=== PATIENT | female | born 1950 | race Caucasian/White ===

== ENCOUNTER 2018-03-23 22:04 | Emergency (ER) | payer MEDICARE, MEDICAID ==
[~2018-03-23] VITALS: Ht 162.6 cm; Wt 72.0 kg
[2018-03-23 22:11] VITALS: Ht 162.6 cm; Wt 72.0 kg
--- NOTE | 2018-03-23 23:46 | ERD ---
ER Documentation Chief Complaint Chief Complaint SORE THROAT X 1 DAY HPI This is a 67-year-old female who presents to emergency department with complaints of throat pain for about 2 days. LMP: Denies headache, head injury, loss of consciousness, dizziness, neck pain, neck stiffness, throat pain, difficulty swallowing, difficulty breathing lying flat, shoulder pain, chest pain, back pain, abdominal pain, nausea, vomiting, constipation, diarrhea, urinary symptoms, or possibility being , loss of bowel and bladder control, trauma, injury, falls, difficulty walking due to pain, numbness or tingling sensation, calf pain, recent travel, recent major surgery in the last 3 weeks, calf pain, recent long travel, recent exposure to any illness, recent antibiotic use in the last 3 months, fever, chills, seizures. Past medical history: Surgical history: Social: Denies smoking, use of alcoholic beverages, use of illegal drugs. ROS All systems reviewed and are negative except as per history of present illness. Medications Home Meds Active Scripts Acetaminophen* (Tylophen*) 500 Mg Capsule, 1 CAP PO Q6H PRN for PAIN AND OR ELEVATED TEMP, #20 CAP Prov:PASILABANJACKLYNBRIAN F 03/24/18 Ondansetron Hcl* (Zofran*) 4 Mg Tablet, 4 MG PO Q8H PRN for NAUSEA AND/OR VOMITING, #30 TAB Prov:PASILABANROBERT F 03/24/18 Benzonatate* (Tessalon Perle*) 100 Mg Capsule, 100 MG PO Q8H PRN for COUGH, #20 CAP Prov:PASILABANJACKLYNAR F 03/24/18 Azithromycin* (Zithromax*) 250 Mg Tablet, 250 MG PO .ZPACK DIRECTED, #6 TAB TAKE 500 MG (2 TABS) THE FIRST DAY THEN 250 MG (1 TAB) DAYS 2-5 Prov:PASILABANJACKLYNAR F 03/24/18 Allergies Allergies: Coded Allergies: No Known Allergy (Unverified , 03/23/18) PMhx/Soc History of Surgery: Yes (HYSTERECTOMY) Anesthesia Reaction: No Hx Cardiac Disorders: Yes (HTN) Hx Alcohol Use: No Hx Substance Use: No Hx Tobacco Use: No Smoking Status: Never smoker Physical Exam Vitals Physical Exam Const: No acute distress Head: Atraumatic Eyes: Normal Conjunctiva ENT: Normal External Ears, Nose and Mouth. Bilateral ears: TMs are not erythematous. No bleeding. No discharge. Throat: Uvula is midline nondisplaced. Tonsils are +2 bilaterally with redness but no exudates. Tolerating secretions. Patent airway. Neck: Full range of motion. No meningismus. No nuchal rigidity. No signs of meningeal irritation. Resp: Clear to auscultation bilaterally. No retractions. No accessory muscle use in breathing. Cardio: Regular rate and rhythm, no murmurs Abd: Soft, non tender, non distended. Normal bowel sounds Skin: No petechiae or rashes Back: No midline or flank tenderness Ext: No cyanosis, or edema Neur: Awake and alert. No neurological deficit. Psych: Normal Mood and Affect Results 24 hrs Current Medications Medications Dose Sig/Tab Start Time Status Last (Trade) Ordered Route PRN Stop Time Admin Dose Reason Admin Ondansetron 4 mg ONCE STAT 03/24/18 DC 03/24/18 HCl (Zofran ODT 01:13 01:24 Odt) 03/24/18 01:14 Procedures/MDM Diagnostic tests: Rapid strep screen: Negative. Influenza A and B: Negative for influenza A. Negative for influenza B. Treatment: Zofran ODT. P.o. challenge. Re-evaluation: No episode of emesis here in emergency department. No drooling. No tripoding. Zofran. Lung sounds are clear to auscultation. Speaks full and clear sentences. Differential diagnosis I have low suspicion for sepsis, peritonsillar abscess, mastoiditis, meningitis. Final diagnosis: Pharyngitis. Laryngitis. Prescription: Azithromycin. Tessalon Perles. Tylenol. Zofran. Follow-up with PCP in the next 24-48 hours. Come back here in the emergency department for any new symptoms or any worsening symptoms. All questions and concerns were answered. Patient and family members verbalized understanding and agreed with plan of care. Hemodynamically stable on discharge. Departure Diagnosis: Primary Impression: Sore throat Additional Impressions: Pharyngitis Laryngitis Condition: Stable Additional Instructions: Follow-up with PCP in the next 24-48 hours. Come back here in the emergency department for any new symptoms or any worsening symptoms. ROBERT WEBER Mar 23, 2018 23:46
[2018-03-24] MEDS ORDERED: ONDANSETRON (ODT) 4 MG TAB ODT STA (01:13)
[2018-03-24] MEDS ORDERED: BENZ-6 PO (01:17)
[2018-03-24] MEDS ORDERED: ONDA4TAB8 PO (01:17)
[2018-03-24] MEDS ORDERED: AZIT250T PO (01:17)
[2018-03-24] MEDS ORDERED: ACET500C5 PO (01:18)
[2018-03-24 01:29] VITALS: BP 129/65; PULSE 65; RESP 18
== END 2018-03-24 01:30 | disposition home or self-care (01) ==
LOC: FTE 22:04
DX: J02.9 Acute pharyngitis, unspecified (principal); I10 Essential (primary) hypertension; J04.0 Acute laryngitis
CPT/HCPCS: 87400; 87880; 99283